=== PATIENT | male | born 1995 | race Caucasian/White ===

== ENCOUNTER 2017-03-22 18:31 | Emergency (ER) | payer OTHER ==
[~2017-03-22] VITALS: Ht 182.9 cm; Wt 102.2 kg
[~2017-03-22 18:31] MED LIST: KEFLEX500 MG PO; MOTRIN800 MG PO; NOHOMEMEDS; TESSALON PERLE100 MG PO
[2017-03-22] MEDS ORDERED: PERIOGARD473 ML MM (19:47)
[2017-03-22] MEDS ORDERED: ULTRACET1 TABLET PO (19:47)
[2017-03-22] MEDS ORDERED: PEN-VEE K,VEET500 MG PO (19:47)
[2017-03-22 20:01] VITALS: BP 189/97
== END 2017-03-22 20:02 | disposition home or self-care (01) ==
LOC: EME 18:31
DX: K05.10 Chronic gingivitis, plaque induced (principal); F17.200 Nicotine dependence, unspecified, uncomplicated; E11.9 Type 2 diabetes mellitus without complications
CPT/HCPCS: 99281; 99283